=== PATIENT | male | born 1955 | race Caucasian/White ===

== ENCOUNTER 2018-01-25 08:06 | Day surgery (SDC) | payer MEDICARE, BC ==
[2018-01-18 12:15] LABS: BASOPHILS % (AUTO) 0.3 % (0-1); EOSINOPHILS # (AUTO) 0.2 X10'3 (0-0.9); EOSINOPHILS % (AUTO) 1.7 % (0-6); MEAN CORPUSCULAR HGB CONC 34.8 % (33.0-36.5); MEAN PLATELET VOLUME 8.3 FL (7.4-10.4); MONOCYTES # (AUTO) 0.7 X10'3 (0-0.9); MONOCYTES % (AUTO) 8.2 % (2-12); NEUTROPHILS # (AUTO) 7.2 X10'3 (1.8-7.7); NEUTROPHILS % (AUTO) 78.8 % (42-75); PRE OP HEMOGLOBIN 14.3 g/dL (14.0-17.9); PRE OP PLATELET COUNT 268 X10'3 (140-440); RED CELL DISTRIBUTION WIDTH 14.6 % (11.5-14.5)
[2018-01-18 12:35] LABS: ALBUMIN 3.8 G/DL (3.4-5.0); ALBUMIN/GLOBULIN RATIO 1.1 (1.1-1.5); ALKALINE PHOSPHATASE 99 IU/L (46-116); BLOOD UREA NITROGEN 12 MG/DL (7-18); BUN/CREATININE RATIO 11.5 (5.4-32.0); CALCIUM 9.1 MG/DL (8.5-10.1); CHLORIDE 104 MMOL/L (99-107); CREATININE 1.04 MG/DL (0.60-1.10); PRE OP ALT 34 U/L (30-65); PRE OP ANION GAP 6 (8-16); PRE OP AST 17 U/L (10-37); PRE OP BILIRUB, TOTAL 1.1 MG/DL (0.0-1.0); PRE OP GLUCOSE 160 MG/DL (70-104); PRE OP POTASSIUM 4.3 MMOL/L (3.4-5.1); PRE OP SODIUM 141 MMOL/L (135-145); TOTAL CARBON DIOXIDE 31.3 MMOL/L (24-32); TOTAL PROTEIN 7.4 G/DL (6.4-8.2); eGFR 72 ML/MIN
[~2018-01-25] VITALS: Ht 152.4 cm; Wt 135.4 kg
[~2018-01-25 08:06] MED LIST: AMLO1TAB14 PO; ASPI81TA30 PO; ATOR80TA PO; CEFAZOLIN IV ONE; GLIM1TAB46 PO; METF10002 PO; POTA20TA19 PO; [UNRECOGNIZED DRUG - OTHER] IV ONE; famotidine 20mg tablet PO ONE; ringers solution, lacted 1,000 ML IV SCH
[2018-01-25 08:30] VITALS: BP 128/79
[2018-01-25] MEDS ORDERED: cefazolin/dext.iso 2gm/50ml 50 ML IV ONE (08:58)
[2018-01-25] MEDS ORDERED: BUPIVAcaine/PF 2.5 mg/ml (0.25%) 30ml vial ONE (10:28)
[2018-01-25] MEDS ORDERED: fentaNYL /PF 50mcg/ml 5ml ampule ONE (10:57)
[2018-01-25] MEDS ORDERED: MIDAZolam 5mg/5ml vial ONE (10:57)
[2018-01-25] MEDS ORDERED: LIDOcaine 2% (20mg/ml) 5ml vial ONE (10:58)
[2018-01-25] MEDS ORDERED: propofol inj 20 ML IV ONE (10:58)
[2018-01-25] MEDS ORDERED: hydrALAZINE 20mg/ml inj. IV ONE (11:10)
[2018-01-25] MEDS ORDERED: esmolol inj. 10 ML IV ONE (11:24)
[2018-01-25] MEDS ORDERED: ringers solution, lacted 1,000 ML IV SCH (11:37)
[2018-01-25] MEDS ORDERED: fentaNYL/PF 50MCG/1 ML 2ML syringe IV PRN (11:40)
[2018-01-25] MEDS ORDERED: ondansetron/PF 4mg/2ml inj IV PRN (11:40)
[2018-01-25 11:41] VITALS: BP 121/60
[2018-01-25 11:51] VITALS: BP 125/34
[2018-01-25 12:01] VITALS: BP 139/74
[2018-01-25 12:11] VITALS: BP 138/71
== END 2018-01-25 12:21 | disposition home or self-care (01) ==
LOC: PAS 08:06
PROVIDERS: ATTEND Orthopaedic Surgery Hand Surgery
DX: G56.22 Lesion of ulnar nerve, left upper limb (principal); I11.0 Hypertensive heart disease with heart failure; I50.9 Heart failure, unspecified; E11.9 Type 2 diabetes mellitus without complications; I25.10 Atherosclerotic heart disease of native coronary artery without angina pectoris; E78.5 Hyperlipidemia, unspecified; K21.9 Gastro-esophageal reflux disease without esophagitis; Z79.82 Long term (current) use of aspirin; Z95.1 Presence of aortocoronary bypass graft; Z98.890 Other specified postprocedural states; Z79.84 Long term (current) use of oral hypoglycemic drugs; Z87.891 Personal history of nicotine dependence; Z72.89 Other problems related to lifestyle; Z79.899 Other long term (current) drug therapy
CPT/HCPCS: 36415; 64718; 80053; 82948; 85025; A6222; A6449; J0360; J0690; J2001; J2250; J2704; J3010; J3490; J7120

== ENCOUNTER 2020-04-07 05:33 | Day surgery (SDC) | payer MEDICARE, BC ==
[2020-03-31 14:31] LABS: BASOPHILS # (AUTO) 0.1 X10'3 (0-0.2); BASOPHILS % (AUTO) 0.7 % (0-1); EOSINOPHILS # (AUTO) 0.1 X10'3 (0-0.9); EOSINOPHILS % (AUTO) 0.9 % (0-6); LYMPHOCYTES # (AUTO) 0.9 X10'3 (1.1-4.8); LYMPHOCYTES % (AUTO) 8.5 % (21-51); MEAN CORPUSCULAR HEMOGLOBIN 30.2 PG (27.0-31.0); MEAN CORPUSCULAR HGB CONC 33.7 g/dL (33.0-36.5); MEAN CORPUSCULAR VOLUME 89.9 FL (78-98); MEAN PLATELET VOLUME 8.5 FL (7.4-10.4); MONOCYTES % (AUTO) 9.2 % (2-12); NEUTROPHILS % (AUTO) 80.7 % (42-75); PRE OP HEMATOCRIT 42.1 % (42.0-52.0); PRE OP HEMOGLOBIN 14.2 g/dL (14.0-17.9); PRE OP PLATELET COUNT 288 X10'3 (140-440); RED BLOOD COUNT 4.69 X10'6 (4.70-6.10); RED CELL DISTRIBUTION WIDTH 15.2 % (11.5-14.5)
[2020-03-31 14:32] LABS: CLARITY,URINE CLEAR (Clear); COLOR,URINE YELLOW (Yellow); GLUCOSE, URINE 100 mg/dl (Neg); KETONES,URINE NEGATIVE (Neg); LEUKOCYTE ESTERASE ,URINE NEGATIVE (Neg); NITRITES, URINE NEGATIVE (Neg); OCCULT BLOOD,URINE MODERATE (Neg); PH,URINE 5.5 (4.8-8.0); PROTEIN,URINE 30 mg/dl (Neg); UROBILINOGEN,URINE 0.2 E.U/dL (0.2-1.0)
[2020-03-31 14:38] LABS: HEMOGLOBIN A1C 8.4 % (4.5-6.2)
[2020-03-31 14:42] LABS: PRE OP INR 0.9 INR; PRE OP PROTIME 9.6 SECONDS (9.0-12.0)
[2020-03-31 14:50] LABS: ALBUMIN 3.8 G/DL (3.4-5.0); ALBUMIN/GLOBULIN RATIO 0.9 (1.1-1.5); ALKALINE PHOSPHATASE 116 IU/L (46-116); BLOOD UREA NITROGEN 47 MG/DL (7-18); CALCIUM 9.1 MG/DL (8.5-10.1); CHLORIDE 95 MMOL/L (99-107); CREATININE 1.81 MG/DL (0.60-1.10); PRE OP ALT 20 U/L (30-65); PRE OP ANION GAP 5 (8-16); PRE OP AST 17 U/L (10-37); PRE OP BILIRUB, TOTAL 0.6 MG/DL (0.0-1.0); PRE OP POTASSIUM 3.9 MMOL/L (3.4-5.1); PRE OP SODIUM 134 MMOL/L (135-145); TOTAL CARBON DIOXIDE 33.7 MMOL/L (24-32); TOTAL PROTEIN 7.9 G/DL (6.4-8.2); eGFR 38 ML/MIN
[2020-03-31 14:57] LABS: PRE OP GLUCOSE 240 MG/DL (70-104)
[2020-03-31 15:00] LABS: UA COLLECTION TYPE NON-SPECIFIED
[2020-03-31 15:02] LABS: SQUAMOUS EPITHELIAL CELL,UR FEW /LPF (FEW)
[2020-03-31 15:04] LABS: BACTERIA,URINE FEW /HPF (Neg); RBC,URINE 0-2 /HPF (0-2); WBC,URINE 0-4 /HPF (0-4)
[~2020-04-07] VITALS: Ht 193 cm; Wt 144.3 kg
[2020-04-07] VITALS (8 sets, daily range): BP systolic 147–229; BP diastolic 75–106
[~2020-04-07 05:33] MED LIST changes: +AMA1T PO; -AMLO1TAB14 PO; +ASPI-107 PO; -ASPI81TA30 PO; -CEFAZOLIN IV ONE; +FURO40TA4 PO; -GLIM1TAB46 PO; +METF-900 PO; -METF10002 PO; +METO5TAB7 PO; +POTA-82 PO; -POTA20TA19 PO; +TRAM50TA2 PO; -[UNRECOGNIZED DRUG - OTHER] IV ONE; +ceFAZolin 1GM/D5W- ADD-VANTAGE 50 ML IV ONE; +cefazolin/dext.iso 2gm/50ml 50 ML IV ONE; +gabapentin 400mg capsule PO ONE; +mupirocin 2% nasal ointment 1gm UD NS ONE
[2020-04-07] MEDS ORDERED: LIDOcaine 1% (10mg/ml) 2ml vial ONE (06:08)
--- NOTE | 2020-04-07 06:46 | NUR ---
DR. ERIC NOTIFIED OF BILAT BP RESULTS AND BS. NO NEW ORDERS AT THIS TIME.
[2020-04-07] MEDS ORDERED: enalaprilat dihydrate 2.5mg/2ml vial IV PRN ×2 (07:15→08:40)
[2020-04-07] MEDS ORDERED: sevoflurane 250ml liquid IH ONE (08:00)
[2020-04-07] MEDS ORDERED: MIDAZolam 5mg/5ml vial ONE (08:08)
[2020-04-07] MEDS ORDERED: fentaNYL /PF 50mcg/ml 5ml ampule ONE (08:08)
[2020-04-07] MEDS ORDERED: propofol inj 20 ML IV ONE (08:09)
[2020-04-07] MEDS ORDERED: LIDOcaine 2% (20mg/ml) 5ml vial ONE (08:09)
[2020-04-07] MEDS ORDERED: succinylcholine 20mg/ml inj IV ONE (08:11)
[2020-04-07] MEDS ORDERED: BUPIVAcaine/PF 2.5 mg/ml (0.25%) 30ml vial ONE (08:29)
[2020-04-07] MEDS ORDERED: ringers solution, lacted 1,000 ML IV SCH (08:36)
[2020-04-07] MEDS ORDERED: fentaNYL/PF 50MCG/1 ML 2ML syringe IV PRN ×2 (08:40)
[2020-04-07] MEDS ORDERED: hydrALAZINE 20mg/ml inj. IV PRN (08:40)
[2020-04-07] MEDS ORDERED: morphine 2 MG/ML inj. syringe IV PRN (08:40)
[2020-04-07] MEDS ORDERED: ondansetron/PF 4mg/2ml inj IV PRN (08:40)
[2020-04-07] MEDS ORDERED: morphine 4 MG/ML inj SYRINge IV PRN (08:40)
--- NOTE | 2020-04-07 09:20 | NUR ---
Received from OR via BED, accompanied by Anesthesiologist -DR PAIGE-- and report given by Anesthesiolgist. PATIENT A&OX4, DENIES PAIN, V/S WNL, NEUROVASCULAR CHECKS INTACT, 20G PIV LUE, SCD ON, DRESSING TO STERNUM, CDI
--- NOTE | 2020-04-07 09:44 | NUR ---
BG 225, DR PAIGE NOTIFIED, ORDERS FOR PATIENT TO RESUME HOME MEDS.
--- NOTE | 2020-04-07 10:20 | NUR ---
PATIENT A&OX4, DENIES PAIN, V/S WNL, NEUROVASCULAR CHECKS INTACT, 20G PIV LUE D/C, SCD OFF, DRESSING TO STERNUM, CDI . I HAVE REVIEWED D/C INSTRUCTIONS WITH PATIENT AND FAMILY AND THEY HAVE VERBALIZED UNDERSTANDING. PATIENT D/C HOME WITH ALL BELONGINGS AND FAMILY GAVE TRANSPORT HOME.
== END 2020-04-07 10:20 | disposition home or self-care (01) ==
LOC: PAS 05:33
PROVIDERS: ATTEND Thoracic Surgery (Cardiothoracic Vascular Surgery)
DX: T84.84XA Pain due to internal orthopedic prosthetic devices, implants and grafts, initial encounter (principal); I25.10 Atherosclerotic heart disease of native coronary artery without angina pectoris; I25.2 Old myocardial infarction; E78.5 Hyperlipidemia, unspecified; G51.0 Bell's palsy; E11.22 Type 2 diabetes mellitus with diabetic chronic kidney disease; I13.0 Hypertensive heart and chronic kidney disease with heart failure and stage 1 through stage 4 chronic kidney disease, or unspecified chronic kidney disease; N18.9 Chronic kidney disease, unspecified; I50.9 Heart failure, unspecified; F10.10 Alcohol abuse, uncomplicated; G56.22 Lesion of ulnar nerve, left upper limb; E66.9 Obesity, unspecified; Z68.41 Body mass index [BMI] 40.0-44.9, adult; Z79.899 Other long term (current) drug therapy; Z79.84 Long term (current) use of oral hypoglycemic drugs; Z82.49 Family history of ischemic heart disease and other diseases of the circulatory system; Z98.890 Other specified postprocedural states; Z87.891 Personal history of nicotine dependence; Z79.82 Long term (current) use of aspirin; Y83.8 Other surgical procedures as the cause of abnormal reaction of the patient, or of later complication, without mention of misadventure at the time of the procedure; Y92.89 Other specified places as the place of occurrence of the external cause; Z11.59 Encounter for screening for other viral diseases
CPT/HCPCS: 20680; 36415; 71046; 80053; 81001; 82948; 83036; 85025; 85610; 85730; 86885; 86900; 86901; 87635; 93005; J0330; J0690; J2001; J2250; J2704; J3010; J3490; A4618; A7000; J7120

== ENCOUNTER 2023-05-27 10:24 | Emergency (ER) | payer MEDICARE, BC ==
[~2023-05-27] VITALS: Ht 182.9 cm; Wt 124.1 kg
[~2023-05-27 10:24] MED LIST changes: +ACET325T53 PO; +ALBU2.5V10 IH; +AMLO5TAB PO; +ASCO-134 PO; -ASPI-107 PO; +DOCU-195 PO; +FOLI1TAB27 PO; +HYDR-3972 PO; +HYDR-3973 PO; +INSU100I71 SUBCUT; +INSU100I8 SQ; +LACT1CAP86 PO; +LANTUS SQ; +LISI2.5T14 PO; +LORA-268 PO; +MELA3TAB39 PO; -METF-900 PO; +MULT-1074 PO; +POTA-207 PO; -POTA-82 PO; +PRED5TAB PO; +THIA100T73 PO; -TRAM50TA2 PO; +VANC250C12 PO; -ceFAZolin 1GM/D5W- ADD-VANTAGE 50 ML IV ONE; -cefazolin/dext.iso 2gm/50ml 50 ML IV ONE; -famotidine 20mg tablet PO ONE; -gabapentin 400mg capsule PO ONE; -mupirocin 2% nasal ointment 1gm UD NS ONE; -ringers solution, lacted 1,000 ML IV SCH
[2023-05-27 11:48] LABS: BASOPHILS # (AUTO) 0.1 X10'3 (0-0.2); BASOPHILS % (AUTO) 0.4 % (0-1); EOSINOPHILS # (AUTO) 0.3 X10'3 (0-0.9); EOSINOPHILS % (AUTO) 1.9 % (0-6); HEMATOCRIT 32.4 % (42.0-52.0); HEMOGLOBIN 10.6 g/dl (14.0-17.9); LYMPHOCYTES # (AUTO) 0.8 X10'3 (1.1-4.8); LYMPHOCYTES % (AUTO) 5.7 % (21-51); MEAN CORPUSCULAR HGB CONC 32.8 g/dL (33.0-36.5); MEAN CORPUSCULAR VOLUME 85.3 FL (78-98); MEAN PLATELET VOLUME 7.3 FL (7.4-10.4); MONOCYTES # (AUTO) 1.2 X10'3 (0-0.9); MONOCYTES % (AUTO) 8.1 % (2-12); NEUTROPHILS # (AUTO) 12.1 X10'3 (1.8-7.7); NEUTROPHILS % (AUTO) 83.9 % (42-75); PLATELET COUNT 372 X10'3 (140-440); RED CELL DISTRIBUTION WIDTH 18.3 % (11.5-14.5); WHITE BLOOD COUNT 14.4 X10'3 (4.5-11.0)
[2023-05-27 12:13] LABS: ALANINE AMINOTRANSFERASE 31 U/L (12-78); ALBUMIN 2.7 G/DL (3.4-5.0); ALBUMIN/GLOBULIN RATIO 0.7 (1.1-1.5); ALKALINE PHOSPHATASE 123 IU/L (46-116); ANION GAP 7 (8-16); ASPARTATE AMINO TRANSFERASE 11 U/L (10-37); BILIRUBIN,TOTAL 0.4 MG/DL (0.1-1.0); BLOOD UREA NITROGEN 35 MG/DL (7-18); CALCIUM 10.2 MG/DL (8.5-10.1); CHLORIDE 100 MMOL/L (99-107); GLUCOSE 201 MG/DL (70-104); POTASSIUM 3.8 MMOL/L (3.5-5.1); SODIUM 137 MMOL/L (135-145); TOTAL PROTEIN 6.5 G/DL (6.4-8.2); eGFR 51 ML/MIN
[2023-05-27 12:37] LABS: LIPASE 52 U/L (73-393)
[2023-05-27 12:40] LABS: OCCULT BLOOD STOOL POSITIVE (Neg)
[2023-05-27 12:46] LABS: CLARITY,URINE CLOUDY (Clear); COLOR,URINE YELLOW (Yellow); GLUCOSE, URINE NEGATIVE (Neg); KETONES,URINE NEGATIVE (Neg); LEUKOCYTE ESTERASE ,URINE LARGE (Neg); NITRITES, URINE NEGATIVE (Neg); OCCULT BLOOD,URINE TRACE-INTACT (Neg); PH,URINE 5.5 (4.8-8.0); PROTEIN,URINE TRACE mg/dl (Neg); UA COLLECTION TYPE STRAIGHT CATH; UROBILINOGEN,URINE 0.2 E.U/dL (0.2-1.0)
[2023-05-27 12:55] LABS: BACTERIA,URINE 1+ /HPF (Neg); MUCUS STRANDS NONE SEEN /LPF (Neg); RBC,URINE 0-2 /HPF (0-2); SQUAMOUS EPITHELIAL CELL,UR NONE SEEN /LPF (FEW); WBC CLUMPS,URINE MANY /HPF (NEGATIVE); WBC,URINE TNTC /HPF (0-4); YEAST FEW /HPF (NEGATIVE)
[2023-05-27] MEDS ORDERED: normal saline 1000ML IV soln IVB ONE (13:15)
[2023-05-27 13:47] LABS: C DIFF SPECIMEN=DIARRHEA? ACCEPTABLE; C DIFFICILE TOXINS A&B POSITIVE (Neg)
[2023-05-27] MEDS ORDERED: CefTRIAXone/D5W-Rocephin 1gm 50 ML IV ONE ×2 (13:50)
[2023-05-27] MEDS ORDERED: VANC125C11 PO (14:00)
[2023-05-27] MEDS ORDERED: vancomycin 125mg/5ml ORAL solution 5ml UD oral syringe PO ONE (14:05)
[2023-05-27] MEDS ORDERED: CefTRIAXone 2gm/D5W 50ml BAG 50 ML IV ONE (14:05)
[2023-05-27 15:33] VITALS: BP 124/64
== END 2023-05-27 15:36 | disposition home or self-care (01) ==
LOC: ER 10:24
DX: E86.0 Dehydration (principal); Z20.822 Contact with and (suspected) exposure to COVID-19; N39.0 Urinary tract infection, site not specified; A04.72 Enterocolitis due to Clostridium difficile, not specified as recurrent; I50.9 Heart failure, unspecified; E11.9 Type 2 diabetes mellitus without complications
CPT/HCPCS: 36415; 76700; 80053; 81001; 82272; 83690; 84145; 85025; 87077; 87088; 87324; 87449; 87811; 96374; 99285; J0696; J7030; C1758

== ENCOUNTER 2023-11-23 11:38 | Inpatient (IN) | payer MEDICARE, BC ==
[~2023-11-23] VITALS: Ht 180.3 cm; Wt 127.3 kg
[~2023-11-23 11:38] MED LIST changes: -INSU100I71 SUBCUT; +INSU100I98 SUBCUT; +VANC125C11 PO
[2023-11-23 12:28] LABS: BASOPHILS # (AUTO) 0.1 X10'3 (0-0.2); BASOPHILS % (AUTO) 0.4 % (0-1); EOSINOPHILS # (AUTO) 0.2 X10'3 (0-0.9); EOSINOPHILS % (AUTO) 0.9 % (0-6); LYMPHOCYTES # (AUTO) 0.6 X10'3 (1.1-4.8); LYMPHOCYTES % (AUTO) 3.2 % (21-51); MEAN CORPUSCULAR HEMOGLOBIN 28.9 PG (27.0-31.0); MEAN CORPUSCULAR HGB CONC 32.3 g/dL (33.0-36.5); MEAN CORPUSCULAR VOLUME 89.5 FL (78-98); MEAN PLATELET VOLUME 8.3 FL (7.4-10.4); MONOCYTES # (AUTO) 1.5 X10'3 (0-0.9); MONOCYTES % (AUTO) 7.8 % (2-12); NEUTROPHILS # (AUTO) 16.9 X10'3 (1.8-7.7); NEUTROPHILS % (AUTO) 87.7 % (42-75); PLATELET COUNT 332 X10'3 (140-440); RED CELL DISTRIBUTION WIDTH 18.6 % (11.5-14.5); WHITE BLOOD COUNT 19.3 X10'3 (4.5-11.0)
[2023-11-23 12:56] LABS: ALANINE AMINOTRANSFERASE 25 U/L (12-78); ALBUMIN 2.8 G/DL (3.4-5.0); ALBUMIN/GLOBULIN RATIO 0.6 (1.1-1.5); ALKALINE PHOSPHATASE 108 IU/L (46-116); ANION GAP 10 (8-16); ASPARTATE AMINO TRANSFERASE 8 U/L (10-37); BILIRUBIN,TOTAL 0.4 MG/DL (0.1-1.0); BLOOD UREA NITROGEN 95 MG/DL (7-18); BUN/CREATININE RATIO 48.7 (10.0-20.0); CALCIUM 9.9 MG/DL (8.5-10.1); CHLORIDE 95 MMOL/L (99-107); CREATININE 1.95 MG/DL (0.60-1.10); GLUCOSE 146 MG/DL (70-104); POTASSIUM 3.5 MMOL/L (3.5-5.1); PRO BRAIN NATRIURETIC PEPTIDE 1407 PG/ML (0-125); SODIUM 135 MMOL/L (135-145); TOTAL CARBON DIOXIDE 30.5 MMOL/L (24-32); TOTAL PROTEIN 7.5 G/DL (6.4-8.2); eCRCL 39 ML/MIN; eGFR 34 ML/MIN
[2023-11-23 15:33] LABS: PLATELET ESTIMATE NORMAL
[2023-11-23 15:34] LABS: ANISOCYTOSIS 2+; BURR CELLS 1+; ELLIPTOCYTES 1+
[2023-11-23] MEDS ORDERED: normal saline 1000ML IV soln IVB ONE (16:35)
[2023-11-23 17:55] LABS: BILIRUBIN,URINE NEGATIVE (Neg); CLARITY,URINE CLEAR (Clear); COLOR,URINE YELLOW (Yellow); GLUCOSE, URINE 500 mg/dl (Neg); KETONES,URINE NEGATIVE (Neg); LEUKOCYTE ESTERASE ,URINE NEGATIVE (Neg); NITRITES, URINE NEGATIVE (Neg); OCCULT BLOOD,URINE NEGATIVE (Neg); PH,URINE 5.5 (4.8-8.0); PROTEIN,URINE NEGATIVE (Neg); UROBILINOGEN,URINE 0.2 E.U/dL (0.2-1.0)
[2023-11-23 17:58] LABS: UA COLLECTION TYPE VOIDED
[2023-11-23] MEDS ORDERED: piperacillin/tazo 3.375gm/50ml 50 ML IV STA (18:08)
[2023-11-23] MEDS ORDERED: METO-395 PO (20:48)
[2023-11-23] MEDS ORDERED: ATOR-2 PO (20:48)
[2023-11-23] MEDS ORDERED: HYDR-3964 PO (20:48)
[2023-11-23] MEDS ORDERED: DAPA10TA PO (20:48)
[2023-11-23] MEDS ORDERED: SEMA0.258 (20:48)
[2023-11-23] MEDS ORDERED: LOSA50TA64 PO (20:48)
[2023-11-23] MEDS ORDERED: AMLO5TAB16 PO (20:48)
[2023-11-23] MEDS ORDERED: POTA-366 PO (20:48)
[2023-11-23] MEDS ORDERED: SERT-432 PO (20:48)
[2023-11-23] MEDS ORDERED: ALLO300T8 PO (20:48)
[2023-11-23] MEDS ORDERED: MULT-1085 PO (20:49)
[2023-11-23] MEDS ORDERED: ASCO-134 PO (20:54)
[2023-11-23] MEDS ORDERED: INSU100V9 SQ (20:56)
[2023-11-23] MEDS ORDERED: MESSAGE TO PHARMACY PO ONE (21:20)
[2023-11-23] MEDS ORDERED: DEXTROSE 15 GM of carb/4 tabs (each vial/BOTTLE has 4 tablets) PO PRN ×2 (21:20)
[2023-11-23] MEDS ORDERED: potassium Cl 40MEQ/1/2NS 520ml 520 ML IV PRN (21:20)
[2023-11-23] MEDS ORDERED: acetaminophen 325mg tablet PO PRN ×2 (21:20)
[2023-11-23] MEDS ORDERED: HYDROmorphone/PF 0.2 MG/ML SYRINGE IV PRN (21:20)
[2023-11-23] MEDS ORDERED: glucagon, human recombinant 1mg kit SUBCUT PRN (21:20)
[2023-11-23] MEDS ORDERED: HYDROmorphone inj. 0.5 MG/0.5 ML DISP.SYRIN IV PRN (21:20)
[2023-11-23] MEDS ORDERED: dextrose 50%-water 50ml dispensing syringe IV PRN ×2 (21:20)
[2023-11-23] MEDS ORDERED: magnesium 4gm in 100ml NS 100 ML IV PRN (21:20)
[2023-11-23] MEDS ORDERED: magnesium 2GM in 50ml NS 50 ML IV PRN (21:20)
[2023-11-23] MEDS ORDERED: LIDOcaine 2% jelly 6ml syringe ***for topical use only MM ONE (23:40)
[2023-11-23] MEDS ORDERED: LidoCAINE 2% Topical Jelly 11mL syringe TOP ONE (23:55)
[2023-11-24 04:11] LABS: MEAN PLATELET VOLUME 8.7 FL (7.4-10.4); PLATELET COUNT 297 X10'3 (140-440); RED BLOOD COUNT 3.54 X10'6 (4.70-6.10); RED CELL DISTRIBUTION WIDTH 18.1 % (11.5-14.5); WHITE BLOOD COUNT 16.3 X10'3 (4.5-11.0)
[2023-11-24 04:14] LABS: BASOPHILS # (AUTO) 0.1 X10'3 (0-0.2); BASOPHILS % (AUTO) 0.4 % (0-1); EOSINOPHILS # (AUTO) 0.2 X10'3 (0-0.9); EOSINOPHILS % (AUTO) 1.4 % (0-6); HEMATOCRIT 31.4 % (42.0-52.0); HEMOGLOBIN 10.3 g/dl (14.0-17.9); LYMPHOCYTES # (AUTO) 0.8 X10'3 (1.1-4.8); LYMPHOCYTES % (AUTO) 4.8 % (21-51); MEAN CORPUSCULAR HEMOGLOBIN 29.1 PG (27.0-31.0); MEAN CORPUSCULAR HGB CONC 32.8 g/dL (33.0-36.5); MEAN CORPUSCULAR VOLUME 88.7 FL (78-98); MONOCYTES # (AUTO) 1.3 X10'3 (0-0.9); MONOCYTES % (AUTO) 7.7 % (2-12); NEUTROPHILS # (AUTO) 13.9 X10'3 (1.8-7.7); NEUTROPHILS % (AUTO) 85.7 % (42-75)
[2023-11-24 04:20] LABS: ALANINE AMINOTRANSFERASE 22 U/L (12-78); ALBUMIN 2.6 G/DL (3.4-5.0); ALBUMIN/GLOBULIN RATIO 0.6 (1.1-1.5); ALKALINE PHOSPHATASE 99 IU/L (46-116); ANION GAP 8 (8-16); ASPARTATE AMINO TRANSFERASE 5 U/L (10-37); BILIRUBIN,TOTAL 0.4 MG/DL (0.1-1.0); BLOOD UREA NITROGEN 91 MG/DL (7-18); BUN/CREATININE RATIO 49.5 (10.0-20.0); CALCIUM 9.5 MG/DL (8.5-10.1); CHLORIDE 99 MMOL/L (99-107); CREATININE 1.84 MG/DL (0.60-1.10); GLUCOSE 117 MG/DL (70-104); MAGNESIUM 1.8 MG/DL (1.5-2.4); SODIUM 139 MMOL/L (135-145); TOTAL CARBON DIOXIDE 31.9 MMOL/L (24-32); TOTAL PROTEIN 6.9 G/DL (6.4-8.2); eCRCL 41 ML/MIN; eGFR 37 ML/MIN
[2023-11-24 04:23] LABS: POTASSIUM 2.9 MMOL/L (3.5-5.1)
[2023-11-24] MEDS: potassium Cl 20 mEq SR tablet PO PRN ×2 (07:18→13:14)
[2023-11-24] MEDS: ondansetron/PF 4mg/2ml inj IV PRN ×2 (07:38→17:54)
[2023-11-24] MEDS: ascorbic acid 500mg tablet PO SCH (07:41)
[2023-11-24] MEDS: multivitamins, therapeutics tablet PO SCH (07:41)
[2023-11-24] MEDS: furosemide 40mg tablet PO SCH (07:42)
[2023-11-24] MEDS: folic acid 1mg tablet PO SCH (07:42)
[2023-11-24] MEDS: heparin, porcine 5000 units/ml vial SQ SCH ×2 (07:44→20:05)
[2023-11-24] MEDS: K and/or MAG REPLACEMENT MC SCH ×2 (07:47→20:00)
[2023-11-24] MEDS: metolazone 2.5mg tablet PO SCH (08:24)
[2023-11-24] MEDS: thiamine 100mg tablet PO SCH (08:24)
[2023-11-24 08:36] LABS: C DIFF ANTIGEN POSITIVE (NEGATIVE); C DIFF SPECIMEN=DIARRHEA? ACCEPTABLE; C DIFFICILE TOXINS A&B POSITIVE (Neg)
[2023-11-24] MEDS ORDERED: mag hydrox/Alum hydrox/simeth 30ml oral suspension PO PRN (15:20)
[2023-11-24] MEDS: VANCOMYCIN 125 MG/5 ML oral SOLN.RECON 5mL UD syringe (FIRVANQ) PO SCH ×2 (15:36→20:06)
[2023-11-24] MEDS: insulin Lispro (HumaLOG) vial - multi-dose SQ SCH (15:52)
[2023-11-24 19:00] VITALS: RESP 20; O2SAT 97
[2023-11-24] MEDS ORDERED: LORazepam 2 mg/ml vial IM ONE (20:25)
[2023-11-24] MEDS ORDERED: LORazepam 1 MG tablet PO ONE (20:30)
[2023-11-24] MEDS: insulin glargine (Lantus) pen - multi-dose SQ SCH (21:00)
[2023-11-24 22:00] VITALS: BP 132/76; PULSE 90; RESP 20; TEMP 98.9; O2SAT 97
[2023-11-25] MEDS: HYDROcodone/acetaminophen 10/325mg tab PO PRN ×2 (00:05→07:21)
[2023-11-25] MEDS: VANCOMYCIN 125 MG/5 ML oral SOLN.RECON 5mL UD syringe (FIRVANQ) PO SCH ×4 (01:38→22:26)
[2023-11-25] MEDS: potassium Cl 20 mEq SR tablet PO PRN ×4 (01:38→17:20)
[2023-11-25 06:26] LABS: BASOPHILS # (AUTO) 0.1 X10'3 (0-0.2); BASOPHILS % (AUTO) 0.4 % (0-1); EOSINOPHILS # (AUTO) 0.4 X10'3 (0-0.9); EOSINOPHILS % (AUTO) 3.3 % (0-6); HEMATOCRIT 30.6 % (42.0-52.0); HEMOGLOBIN 9.8 g/dl (14.0-17.9); LYMPHOCYTES # (AUTO) 0.9 X10'3 (1.1-4.8); LYMPHOCYTES % (AUTO) 7.2 % (21-51); MEAN CORPUSCULAR HEMOGLOBIN 28.9 PG (27.0-31.0); MEAN CORPUSCULAR HGB CONC 32.1 g/dL (33.0-36.5); MEAN CORPUSCULAR VOLUME 90.2 FL (78-98); MEAN PLATELET VOLUME 8.8 FL (7.4-10.4); MONOCYTES # (AUTO) 1.4 X10'3 (0-0.9); MONOCYTES % (AUTO) 11.8 % (2-12); NEUTROPHILS # (AUTO) 9.5 X10'3 (1.8-7.7); NEUTROPHILS % (AUTO) 77.3 % (42-75); PLATELET COUNT 298 X10'3 (140-440); RED BLOOD COUNT 3.39 X10'6 (4.70-6.10); RED CELL DISTRIBUTION WIDTH 18.4 % (11.5-14.5); WHITE BLOOD COUNT 12.3 X10'3 (4.5-11.0)
[2023-11-25 06:38] VITALS: BP 144/82; PULSE 89; RESP 14; TEMP 97.4; O2SAT 94
[2023-11-25 06:45] LABS: ALANINE AMINOTRANSFERASE 16 U/L (12-78); ALBUMIN 2.3 G/DL (3.4-5.0); ALBUMIN/GLOBULIN RATIO 0.6 (1.1-1.5); ALKALINE PHOSPHATASE 88 IU/L (46-116); ANION GAP 8 (8-16); ASPARTATE AMINO TRANSFERASE 12 U/L (10-37); BILIRUBIN,TOTAL 0.3 MG/DL (0.1-1.0); BLOOD UREA NITROGEN 76 MG/DL (7-18); BUN/CREATININE RATIO 42.5 (10.0-20.0); CALCIUM 9.2 MG/DL (8.5-10.1); CHLORIDE 99 MMOL/L (99-107); CREATININE 1.79 MG/DL (0.60-1.10); GLUCOSE 124 MG/DL (70-104); MAGNESIUM 1.8 MG/DL (1.5-2.4); POTASSIUM 3.4 MMOL/L (3.5-5.1); SODIUM 137 MMOL/L (135-145); TOTAL PROTEIN 6.4 G/DL (6.4-8.2); eCRCL 42 ML/MIN; eGFR 38 ML/MIN
[2023-11-25] MEDS: ondansetron/PF 4mg/2ml inj IV PRN ×2 (07:17→22:33)
[2023-11-25] MEDS: folic acid 1mg tablet PO SCH (07:21)
[2023-11-25] MEDS: ascorbic acid 500mg tablet PO SCH (07:21)
[2023-11-25] MEDS: thiamine 100mg tablet PO SCH (07:21)
[2023-11-25] MEDS: multivitamins, therapeutics tablet PO SCH (07:21)
[2023-11-25] MEDS: metolazone 2.5mg tablet PO SCH (07:21)
[2023-11-25] MEDS: furosemide 40mg tablet PO SCH (07:21)
[2023-11-25] MEDS: heparin, porcine 5000 units/ml vial SQ SCH ×2 (07:24→22:29)
[2023-11-25 08:00] VITALS: RESP 14; O2SAT 94
[2023-11-25] MEDS: K and/or MAG REPLACEMENT MC SCH ×2 (08:00→20:00)
[2023-11-25 11:15] VITALS: BP 129/65; PULSE 82; RESP 16; TEMP 98.7; O2SAT 95
[2023-11-25] MEDS ORDERED: HYDROmorphone/PF 0.2 MG/ML SYRINGE IV PRN (13:20)
[2023-11-25] MEDS ORDERED: HYDROcodone/acetaminophen 10/325mg tab PO PRN (13:20)
[2023-11-25 15:00] LABS: HEMOGLOBIN A1C 7.7 % (4.5-6.2)
[2023-11-25 18:00] VITALS: BP 131/59; PULSE 88; RESP 18; TEMP 98.4; O2SAT 94
[2023-11-25] MEDS: insulin Lispro (HumaLOG) vial - multi-dose SQ SCH (19:49)
[2023-11-25 20:00] VITALS: RESP 18; O2SAT 96
[2023-11-25 22:00] VITALS: BP 140/73; PULSE 89; RESP 16; TEMP 98.7; O2SAT 95
[2023-11-25] MEDS: insulin glargine (Lantus) pen - multi-dose SQ SCH (22:56)
[2023-11-26] MEDS: VANCOMYCIN 125 MG/5 ML oral SOLN.RECON 5mL UD syringe (FIRVANQ) PO SCH ×2 (03:04→07:00)
[2023-11-26 06:00] VITALS: BP 139/75; PULSE 89; RESP 18; TEMP 97; O2SAT 96
[2023-11-26] MEDS: folic acid 1mg tablet PO SCH (07:00)
[2023-11-26] MEDS: ascorbic acid 500mg tablet PO SCH (07:01)
[2023-11-26] MEDS: multivitamins, therapeutics tablet PO SCH (07:01)
[2023-11-26] MEDS: thiamine 100mg tablet PO SCH (07:01)
[2023-11-26] MEDS: metolazone 2.5mg tablet PO SCH (07:01)
[2023-11-26 07:07] LABS: BASOPHILS % (AUTO) 0.3 % (0-1); EOSINOPHILS # (AUTO) 0.3 X10'3 (0-0.9); EOSINOPHILS % (AUTO) 3.2 % (0-6); HEMATOCRIT 29.7 % (42.0-52.0); HEMOGLOBIN 9.9 g/dl (14.0-17.9); LYMPHOCYTES # (AUTO) 0.9 X10'3 (1.1-4.8); LYMPHOCYTES % (AUTO) 8.4 % (21-51); MEAN CORPUSCULAR HEMOGLOBIN 29.6 PG (27.0-31.0); MEAN CORPUSCULAR HGB CONC 33.4 g/dL (33.0-36.5); MEAN CORPUSCULAR VOLUME 88.6 FL (78-98); MEAN PLATELET VOLUME 8.1 FL (7.4-10.4); MONOCYTES # (AUTO) 1.4 X10'3 (0-0.9); MONOCYTES % (AUTO) 12.9 % (2-12); NEUTROPHILS % (AUTO) 75.2 % (42-75); PLATELET COUNT 284 X10'3 (140-440); RED BLOOD COUNT 3.35 X10'6 (4.70-6.10); RED CELL DISTRIBUTION WIDTH 17.9 % (11.5-14.5); WHITE BLOOD COUNT 10.6 X10'3 (4.5-11.0)
[2023-11-26] MEDS: heparin, porcine 5000 units/ml vial SQ SCH (07:10)
[2023-11-26 07:16] LABS: ALANINE AMINOTRANSFERASE 16 U/L (12-78); ALBUMIN 2.3 G/DL (3.4-5.0); ALBUMIN/GLOBULIN RATIO 0.6 (1.1-1.5); ALKALINE PHOSPHATASE 87 IU/L (46-116); ANION GAP 8 (8-16); ASPARTATE AMINO TRANSFERASE 11 U/L (10-37); BILIRUBIN,TOTAL 0.3 MG/DL (0.1-1.0); BLOOD UREA NITROGEN 72 MG/DL (7-18); BUN/CREATININE RATIO 40.9 (10.0-20.0); CALCIUM 8.9 MG/DL (8.5-10.1); CHLORIDE 97 MMOL/L (99-107); CREATININE 1.76 MG/DL (0.60-1.10); GLUCOSE 145 MG/DL (70-104); MAGNESIUM 1.6 MG/DL (1.5-2.4); POTASSIUM 3.6 MMOL/L (3.5-5.1); SODIUM 134 MMOL/L (135-145); TOTAL CARBON DIOXIDE 29.5 MMOL/L (24-32); TOTAL PROTEIN 6.4 G/DL (6.4-8.2); eCRCL 43 ML/MIN; eGFR 39 ML/MIN
[2023-11-26] MEDS: K and/or MAG REPLACEMENT MC SCH (07:34)
[2023-11-26] MEDS ORDERED: furosemide 20MG tablet PO SCH (08:00)
[2023-11-26] MEDS: insulin Lispro (HumaLOG) vial - multi-dose SQ SCH (08:39)
[2023-11-26 10:00] VITALS: BP 146/81; PULSE 86; RESP 18; TEMP 96.9; O2SAT 95
[2023-11-26] MEDS ORDERED: FURO20TA4 PO (11:35)
[2023-11-26] MEDS ORDERED: VANC25SO PO (11:35)
== END 2023-11-26 12:35 | disposition home health service (06) | DRG 372 ==
LOC: ER 11:39 → ED HOLD 21:29 → EDBEDREQ 11-24 16:42 → ORTHO 4S 11-24 17:40
PROVIDERS: ADMIT Family Medicine; ATTEND Internal Medicine
DX: A04.71 Enterocolitis due to Clostridium difficile, recurrent (principal); K57.92 Diverticulitis of intestine, part unspecified, without perforation or abscess without bleeding; M86.8X7 Other osteomyelitis, ankle and foot; L97.419 Non-pressure chronic ulcer of right heel and midfoot with unspecified severity; N17.9 Acute kidney failure, unspecified; E11.69 Type 2 diabetes mellitus with other specified complication; E11.22 Type 2 diabetes mellitus with diabetic chronic kidney disease; N18.9 Chronic kidney disease, unspecified; K64.9 Unspecified hemorrhoids; I50.9 Heart failure, unspecified; G47.33 Obstructive sleep apnea (adult) (pediatric); I27.20 Pulmonary hypertension, unspecified; I25.10 Atherosclerotic heart disease of native coronary artery without angina pectoris; I25.2 Old myocardial infarction; Z95.1 Presence of aortocoronary bypass graft; Z92.89 Personal history of other medical treatment; Z86.19 Personal history of other infectious and parasitic diseases; Z83.3 Family history of diabetes mellitus; Z82.49 Family history of ischemic heart disease and other diseases of the circulatory system
CPT/HCPCS: 36415; 70450; 71045; 74176; 80053; 81003; 82948; 83036; 83605; 83735; 83880; 84145; 84484; 85008; 85025; 87040; 87081; 87324; 87449; 93005; 97110; 97161; 97530; 99285; A4314; A6212; A6213; A6222; A6250; G0378; J1170; J1644; J1815; J2405; J7030